=== PATIENT | male | born 1995 | race Two or more races ===

== ENCOUNTER 2019-08-19 15:13 | Emergency (ER) | payer SELFPAY ==
[~2019-08-19] VITALS: Ht 177.8 cm; Wt 56.1 kg
--- NOTE | 2019-08-19 15:30 | NUR ---
pt to room from triage in no acute distress. pa-c is at the bedside
[2019-08-19] MEDS ORDERED: ONDANSETRON ODT 4 MG ONE (15:49)
--- NOTE | 2019-08-19 15:49 | NUR ---
12 lead at the bedside
[2019-08-19] MEDS ORDERED: ONDANSETRON ODT 4 MG PO ONE (16:00)
--- NOTE | 2019-08-19 16:10 | NUR ---
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
[2019-08-19 16:21] VITALS: BP 138/81
--- NOTE | 2019-08-19 16:21 | NUR ---
Lab at bedside
[2019-08-19] MEDS ORDERED: MECLIZINE CHEWABLE 25 MG TAB PO ONE (16:30)
[2019-08-19] MEDS ORDERED: MECLIZINE CHEWABLE 25 MG TAB ONE (16:31)
[2019-08-19 16:41] LABS: ALBUMIN 4.4 g/dL (3.4-5.0); ANION GAP 6 mmol/L (5-15); CALCIUM 9.3 mg/dL (8.5-10.1); CHLORIDE 107 mmol/L (98-107); CREATININE 0.88 mg/dL (0.7-1.3)
[2019-08-19 16:45] LABS: BASOPHILS # (AUTO) 0.02 x10^3/uL (0-0.1); BASOPHILS % (AUTO) 1 % (0-1); EOSINOPHILS # (AUTO) 0.12 x10^3/uL (0-0.4); EOSINOPHILS % (AUTO) 3 % (1-7); LYMPHOCYTES # (AUTO) 1.82 x10^3/uL (1-3.4); LYMPHOCYTES % (AUTO) 40 % (22-44); MD NO; MEAN CORPUSCULAR VOLUME 91.1 fL (81-97); MEAN PLATELET VOLUME 7.9 fL (7.4-10.4); MONOCYTES # (AUTO) 0.35 x10^3/uL (0.2-0.8); MONOCYTES % (AUTO) 8 % (2-9); NEUTROPHILS # (AUTO) 2.26 x10^3/uL (1.8-6.8); NEUTROPHILS % (AUTO) 49 % (42-75); PLATELET COUNT 265 x10^3/uL (130-400); RED BLOOD COUNT 5.19 x10^6/uL (4.38-5.82); RED CELL DISTRIBUTION WIDTH 13.6 % (9.4-14.8)
--- NOTE | 2019-08-19 16:47 | NUR ---
With reassessment-nausea/dizziness improved from 11/30 to 2 Deferred meclizine admin d/t improvement in symptoms
== END 2019-08-19 16:59 | disposition home or self-care (01) ==
LOC: ED 16:51
DX: R42 Dizziness and giddiness (principal); R11.0 Nausea; I51.7 Cardiomegaly
CPT/HCPCS: 36415; 71045; 80048; 82040; 85025; 93005; 99285; Q0162

== ENCOUNTER 2020-01-28 22:53 | Emergency (ER) | payer SELFPAY ==
[~2020-01-28] VITALS: Ht 180.3 cm; Wt 56.5 kg
[2020-01-28 22:57] VITALS: BP 129/71
--- NOTE | 2020-01-29 02:22 | NUR ---
NIL X 1 WHEN CALLED FOR ROOM.
--- NOTE | 2020-01-29 02:46 | NUR ---
NIL X 2 WHEN CALLED FOR ROOM.
--- NOTE | 2020-01-29 03:07 | NUR ---
NIL X 3 WHEN CALLED FOR ROOM.
== END 2020-01-29 03:09 | disposition left against medical advice (07) ==
LOC: ED 01-29 02:40
DX: J02.9 Acute pharyngitis, unspecified (principal); Z53.21 Procedure and treatment not carried out due to patient leaving prior to being seen by health care provider